=== PATIENT | male | born 1960 | race Caucasian/White ===

== ENCOUNTER → 2021-11-20 10:17 | Outpatient (CLI) | payer OTHER, SELFPAY ==
[2021-11-20 19:12] LABS: Add Manual Diff / Slide Review NO; Basophils Absolute Auto 100 /uL (0-100); Eosinophils Absolute Auto 300 /uL (0-450); Eosinophils Percent Auto 3.8 % (2-4); Hematocrit 42.5 % (41-53); Hemoglobin 14.6 g/dL (13.5-17.5); Lymphocytes Absolute Auto 2100 /uL (1100-4500); Lymphocytes Percent Auto 27.3 % (25-40); Mean Corpuscular HGB Conc 34.3 % (30-36); Mean Corpuscular Hemoglobin 30.3 PG (26-34); Mean Corpuscular Volume 88.4 fL (80-100); Monocytes Absolute Auto 600 /uL (0-900); Monocytes Percent Auto 7.6 % (3-14); Neutrophils Absolute Auto 4500 /uL (1500-7000); Neutrophils Percent Auto 60.3 % (50-75); Platelet Count 227 X10^3/uL (150-400); Red Blood Cell Count 4.81 X10^6/uL (4.5-5.9); Red Cell Distribution Width 14.5 % (11.6-14.8); White Blood Cell Count 7.5 X10^3/uL (4.5-11.0)
[2021-11-20 19:19] LABS: Alanine Aminotransferase 25 IU/L (<50); Albumin 4.2 g/dL (3.5-5.0); Albumin Globulin Ratio 1.4 (1.0-2.8); Alkaline Phosphatase 65 U/L (38-126); Aspartate Aminotransferase 27 IU/L (17-59); BUN Creatinine Ratio 23.2 (6-22); Bilirubin Total 0.8 mg/dL (0.2-1.3); Blood Urea Nitrogen 23 mg/dL (9-20); Calcium 9.6 mg/dL (8.4-10.2); Carbon Dioxide 26 mmol/L (22-32); Chloride 100 mmol/L (98-107); Cholesterol 259 mg/dL (140-199); Estimated Glomerular Filt Rate > 60 mL/min (>60); Glucose 107 mg/dL (80-110); HDL Cholesterol 60 mg/dL (40-60); HEMOLYSIS < 15 (0-50); LDL Cholesterol Calculated 174 mg/dL (<100); Potassium 4.4 mmol/L (3.4-5.1); Sodium 135 mmol/L (137-145); Total Protein 7.2 g/dL (6.3-8.2); Triglycerides 126 mg/dL (35-150)
[2021-11-20 19:49] LABS: Prostate Specific Antigen Scrn 0.529 ng/mL (0.1-4.0)
== END ==
PROVIDERS: PCP Family Medicine; Visit Provider Physician Assistant
DX: I10 Essential (primary) hypertension (principal); M10.9 Gout, unspecified; Z12.5 Encounter for screening for malignant neoplasm of prostate; Z13.6 Encounter for screening for cardiovascular disorders; Z79.899 Other long term (current) drug therapy
CPT/HCPCS: 80053; 80061; 85025; G0103

== ENCOUNTER → 2024-01-05 10:05 | Outpatient (CLI) | payer OTHER, SELFPAY ==
[2024-01-05 19:10] LABS: Add Manual Diff / Slide Review NO; Basophils Absolute Auto 0 /uL (0-100); Basophils Percent Auto 0.7 % (0-2); Eosinophils Absolute Auto 400 /uL (0-450); Eosinophils Percent Auto 5.4 % (2-4); Hematocrit 44.3 % (41-53); Lymphocytes Absolute Auto 2000 /uL (1100-4500); Mean Corpuscular HGB Conc 33.8 % (30-36); Mean Corpuscular Hemoglobin 29.2 PG (26-34); Mean Corpuscular Volume 86.4 fL (80-100); Monocytes Absolute Auto 500 /uL (0-900); Monocytes Percent Auto 7.1 % (3-14); Neutrophils Absolute Auto 3700 /uL (1500-7000); Neutrophils Percent Auto 55.8 % (50-75); Platelet Count 293 X10^3/uL (150-400); Red Blood Cell Count 5.12 X10^6/uL (4.5-5.9); Red Cell Distribution Width 13.3 % (11.6-14.8); White Blood Cell Count 6.6 X10^3/uL (4.5-11.0)
[2024-01-05 19:18] LABS: Alanine Aminotransferase 21 IU/L (<50); Albumin 4.1 g/dL (3.5-5.0); Albumin Globulin Ratio 1.5 (1.0-2.8); Alkaline Phosphatase 60 U/L (38-126); Aspartate Aminotransferase 24 IU/L (17-59); BUN Creatinine Ratio 23.5 (6-22); Bilirubin Total 0.9 mg/dL (0.2-1.3); Blood Urea Nitrogen 23 mg/dL (9-20); Calcium 9.6 mg/dL (8.4-10.2); Carbon Dioxide 30 mmol/L (22-32); Chloride 101 mmol/L (98-107); Cholesterol 250 mg/dL (140-199); Estimated Glomerular Filt Rate > 60 mL/min (>60); Globulin 2.8 g/dL (1.7-4.1); Glucose 115 mg/dL (80-110); HDL Cholesterol 53 mg/dL (40-60); HEMOLYSIS < 15 (0-50); LDL Cholesterol Calculated 170 mg/dL (<100); Potassium 4.6 mmol/L (3.4-5.1); Sodium 136 mmol/L (137-145); Total Protein 6.9 g/dL (6.3-8.2); Triglycerides 137 mg/dL (35-150)
[2024-01-05 19:48] LABS: Prostate Specific Antigen Scrn 0.482 ng/mL (0.1-4.0); TSH w/ Reflex to FT4 1.65 uIU/mL (0.47-4.68)
== END ==
PROVIDERS: PCP Physician Assistant; Visit Provider Physician Assistant
DX: E78.00 Pure hypercholesterolemia, unspecified (principal); I10 Essential (primary) hypertension; M10.9 Gout, unspecified; Z13.6 Encounter for screening for cardiovascular disorders; Z12.5 Encounter for screening for malignant neoplasm of prostate; E66.9 Obesity, unspecified
CPT/HCPCS: 80053; 80061; 84443; 85025; G0103

== ENCOUNTER → 2024-01-13 12:00 | Outpatient (CLI) | payer OTHER, SELFPAY | PROVIDERS: PCP Physician Assistant; Visit Provider Physician Assistant | DX: R19.7 Diarrhea, unspecified (principal) | CPT/HCPCS: 87177 ==

== ENCOUNTER → 2024-03-08 09:01 | Outpatient (CLI) | payer OTHER, SELFPAY ==
[2024-03-08 19:27] LABS: Add Manual Diff / Slide Review NO; Basophils Absolute Auto 100 /uL (0-100); Basophils Percent Auto 0.8 % (0-2); Eosinophils Absolute Auto 300 /uL (0-450); Eosinophils Percent Auto 4.2 % (2-4); Hematocrit 46.4 % (41-53); Hemoglobin 15.3 g/dL (13.5-17.5); Lymphocytes Absolute Auto 1700 /uL (1100-4500); Lymphocytes Percent Auto 23.6 % (25-40); Mean Corpuscular Hemoglobin 28.6 PG (26-34); Mean Corpuscular Volume 86.6 fL (80-100); Monocytes Absolute Auto 600 /uL (0-900); Monocytes Percent Auto 7.7 % (3-14); Neutrophils Absolute Auto 4600 /uL (1500-7000); Neutrophils Percent Auto 63.7 % (50-75); Platelet Count 248 X10^3/uL (150-400); Red Blood Cell Count 5.35 X10^6/uL (4.5-5.9); Red Cell Distribution Width 15.9 % (11.6-14.8); White Blood Cell Count 7.3 X10^3/uL (4.5-11.0)
[2024-03-08 19:37] LABS: Alanine Aminotransferase 25 IU/L (<50); Albumin 4.3 g/dL (3.5-5.0); Albumin Globulin Ratio 1.6 (1.0-2.8); Alkaline Phosphatase 57 U/L (38-126); Aspartate Aminotransferase 30 IU/L (17-59); BUN Creatinine Ratio 23.7 (6-22); Bilirubin Total 0.8 mg/dL (0.2-1.3); Blood Urea Nitrogen 22 mg/dL (9-20); C-Reactive Protein Quant 0.8 mg/dL (<1.0); Calcium 9.5 mg/dL (8.4-10.2); Carbon Dioxide 26 mmol/L (22-32); Chloride 103 mmol/L (98-107); Cholesterol 238 mg/dL (140-199); Estimated Glomerular Filt Rate > 60 mL/min (>60); Globulin 2.7 g/dL (1.7-4.1); Glucose 124 mg/dL (80-110); HDL Cholesterol 71 mg/dL (40-60); HEMOLYSIS 29 (0-50); LDL Cholesterol Calculated 142 mg/dL (<100); Potassium 4.4 mmol/L (3.4-5.1); Sodium 135 mmol/L (137-145); Triglycerides 125 mg/dL (35-150); Uric Acid 6.5 mg/dL (3.5-8.5)
[2024-03-08 19:41] LABS: Rheumatoid Factor < 8.6 IU/mL (<12.0)
[2024-03-08 20:06] LABS: Erythrocyte Sedimentation Rate 3 MM/HR (0-15)
== END ==
PROVIDERS: PCP Physician Assistant; Visit Provider Family Medicine
DX: I10 Essential (primary) hypertension (principal); M10.9 Gout, unspecified; E78.00 Pure hypercholesterolemia, unspecified
CPT/HCPCS: 80053; 80061; 84550; 85025; 85651; 86038; 86140; 86200; 86430

== ENCOUNTER → 2024-04-20 13:36 | Outpatient (CLI) | payer OTHER, SELFPAY ==
--- NOTE | 2024-04-20 13:38 | DI.ECHO.S_ITS ---
[facility] : : [address] : : [place] : : [id number] : : Phone: [phone] Echocardiogram Report + + :Name: GEMA SCHULZ Study Date: 04/20/2024 Height: 69 in : :[facility] ReadingLocation: Weight: 250 lb : : Gender: Male BSA: 2.3 m2 : :: 1960 Age: 63 yrs BP: 168/98 mmHg: :Reason For Study: PRECORDIAL CHEST PAIN : :Ordering Physician: MICHELLE, : :ROBYN Performed By: Marine Brown : :Referring: ROBYN MARTINEZ : + + Interpretation Summary 1. Left ventricular contractility is borderline. Estimate ejection fraction is 50 to 55% with no segmental wall motion abnormalities. Borderline concentric LVH. Grade 1 diastolic dysfunction. 2. The right ventricular contractility is normal. 3. Mild right ventricular enlargement. All other cardiac chambers are of normal size. 4. No significant valvular abnormalities. 5. No obvious intracardiac shunts. 6. No obvious intracardiac masses nor thrombi. 7. No hemodynamically significant pericardial effusion. 8. Low right-sided filling pressures. 9. Mildly dilated aortic root and ascending thoracic aorta without obvious dissection. Conclusion: Low normal left ventricular systolic function with no significant valvular abnormalities. Procedure: A two-dimensional transthoracic echocardiogram with color flow and Doppler was performed. The study quality was technically adequate. There is no prior echocardiogram noted for this patient. The patient was in sinus rhythm with heart rates between 61-72 bpm during the exam. Left Ventricle: The left ventricle is normal in size. Left ventricular wall thickness is mildly increased. The ejection fraction is estimated to be 50- 55%. Right Ventricle: The right ventricle is mildly dilated. The right ventricular systolic function is normal. Atria: The left atrial size is normal. Right atrial size is normal. There is no Doppler evidence for an interatrial shunt. Mitral Valve: The mitral valve leaflets appear to open well. There is no mitral regurgitation noted. Aortic Valve: The aortic valve is trileaflet. The aortic valve opens well. There is no aortic valve stenosis. There is trace aortic regurgitation. Tricuspid Valve: The tricuspid valve leaflets are thin and pliable. There is trace tricuspid regurgitation. The right ventricular systolic pressure is estimated to be at least 24 mmHg based on an estimated right atrial pressure of 3 mm Hg. Pulmonic Valve: The pulmonic valve leaflets are thin and pliable; valve motion is normal. There is trace pulmonic regurgitation. Great Vessels: The aortic root is mildly dilated. The ascending aorta is mildly enlarged. The IVC is of normal diameter and collapses greater than 50% with a sniff. This suggests a low right atrial pressure of 3 mm Hg. Pericardium/ Pleura There is no pericardial effusion. There is no pleural effusion. MMode/2D Measurements & Calculations LVIDd: 4.6 cm LVOT diam: 2.4 cm LVIDs: 3.0 cm Ao root diam: 4.6 cm FS: 35.4 % asc Aorta Diam: 4.4 cm IVSd: 1.0 cm Ao Arch Diam (Prox Trans): 3.6 cm LVPWd: 1.2 cm LV valero. diameter/BSA (cm/m^2): 2.0 LV sys. diameter/BSA (cm/m^2): 1.3 LA A2 area: 28.4 cm2 RA long axis: 5.6 cm LA A4 area: 20.4 cm2 RA area: 20.2 cm2 LA length (vol): 5.4 cm RA vol: 62.1 ml LA vol: 90.8 ml RA : 27.3 ml/m2 LA vol index: 40.0 ml/m2 IVC diam: 2.3 cm RVD1 (basal): 4.1 cm RVD2 (mid): 3.4 cm TAPSE: 2.0 cm Doppler Measurements & Calculations Ao V2 max: 153.9 cm/sec LVOT Max Panfilo: 90.0 cm/sec Ao V2 mean: 104.8 cm/sec LV V1 max P.2 mmHg Ao max P.5 mmHg LV V1 VTI: 21.2 cm Ao mean P.9 mmHg OTIS(I,D): 3.1 cm2 Ao V2 VTI: 31.4 cm OTIS(V,D): 2.7 cm2 sev ratio: 0.67 OTIS indexed to BSA (cm^2/m^2): 1.4 MV E max panfilo: 62.8 cm/sec TR max panfilo: 233.1 cm/sec MV A max panfilo: 76.8 cm/sec TR max P.7 mmHg MV E/A: 0.82 PA V2 max: 97.5 cm/sec Med Peak E' Panfilo: 5.6 cm/sec PA V2 mean: 68.6 cm/sec E/E' med: 11.3 PA mean P.0 mmHg Lat Peak E' Panfilo: 9.4 cm/sec PA pr(Accel): 39.2 mmHg E/E' lat: 6.6 E/e' average: 8.9 MV dec time: 0.28 sec SV(OT): 97.4 ml Reading Physician:JAROD
== END ==
PROVIDERS: PCP Physician Assistant; Referring Provider Internal Medicine Cardiovascular Disease; Visit Provider Internal Medicine Cardiovascular Disease
DX: R07.2 Precordial pain (principal); I77.810 Thoracic aortic ectasia; I77.89 Other specified disorders of arteries and arterioles
CPT/HCPCS: 93306

== ENCOUNTER 2024-08-16 06:32 | Day surgery (SDC) | payer OTHER, SELFPAY ==
[2024-08-10 11:56] VITALS: BMI 36.3
--- NOTE | 2024-08-16 | PATH_ITS ---
[facility] Accession Number: [id number] No. of containers..01 Tissue . 01 Material submitted: . OMENTUM - OMENTUM . 01 Diagnosis: OMENTUM, PARTIAL OMENTECTOMY: Histologically unremarkable fibroadipose tissue. Negative for malignancy. MRV 08/22/2024 1445 Local . 01 Electronically signed: . Shanice French DO, Pathologist NPI- [id number] . 01 Gross description: . Received in formalin with two identifiers and omentum, is an irregular fragment of yellow, lobulated soft tissue, 9.4 x 5.0 x 1.5 cm. A pale wong, smooth, rubbery nodule is identified measuring 1.4 x 1.3 x 1.2 cm. Sectioning the specimen reveals the rubber fragment to have a yellow, soft cut surface. The remaining cut surface is lobulated and unremarkable with no lesions identified. Joint Cutter sections are submitted in A1-A2. ([id number]) /MRV 08/17/2024 1332 Local . 01 Pathologist provided ICD-10: K42.9 . 01 CPT . 761219 Specimen Comment: A courtesy copy of this report has been sent to [phone] Performed at: [address] [facility], [place], [place] [id number] MD Wally Palm MD Phone: [phone]
[2024-08-16 07:09] VITALS: BMI 36.3
[2024-08-16] MEDS: ACETAMINOPHEN 325 MG TABLET 975 MG PO (07:25)
[2024-08-16] MEDS: LACTATED RINGERS 1,000 ML 42 ML IV (07:27)
[2024-08-16 07:28] VITALS: BP 169/101; PULSE 69; RESP 16; TEMP 36.7; O2SAT 97
--- NOTE | 2024-08-16 07:38 | PM.PREOP ---
Pre-operative Note COVID-19 COVID-19 status: Not tested Interval Note History & Physical reviewed/Exam performed by Physician: Yes Changes to H&P: No ASA Class (for procedural sedation): II
[2024-08-16] MEDS: CEFAZOLIN 2 GM/100 ML PREMIX 100 ML IV (07:50)
--- NOTE | 2024-08-16 08:06 | SUR.OPER ---
Supine on padded OR bed, head on pillow, arms secured on padded arm boards at <90 degrees abduction, legs uncrossed, safety belt at thigh, tape over blanket over lower legs. Dr. Fisher and PA in room at time of positioning. All pressure points padded and position approved.
[2024-08-16] MEDS: BUPIVACAINE 0.5% W/ EPI (PF) 30 ML VIAL INJ (08:09)
--- NOTE | 2024-08-16 09:17 | PM.OP.1 ---
Operative Date/Time/Diagnoses Date of procedure: 08/16/24 Time of procedure: 09:17 Pre-op diagnosis: Umbilical hernia Post-op diagnosis: same Procedure & Clinicians Procedure: Open umbilical hernia repair with mesh Same procedure(s) as scheduled: Yes Surgeon: Jakub Fisher Lead Software Engineer: Abelardo Mckeon Anesthesia Type: General Operative Notes Findings: 2 cm fascial defect containing incarcerated omentum Applied: none Estimated Blood Loss (mL): 20 Procedure in detail: Ancef was administered. The patient was brought to the operating room, placed on the table in the supine position and general endotracheal anesthesia was induced. The abdomen was prepped and draped in the usual fashion. A time-out was performed. A 6 cm curvilinear incision was made inferior to the umbilicus and at least 1 cm inferior to the patch of psoriatic skin of the umbilicus. The hernia sac was dissected free from the surrounding subcutaneous adipose tissue. The sac was dissected off the umbilical skin using a combination of cautery, sharp and blunt dissection. Sac was opened and a segment of omentum was resected using the cautery. This resection did induce some persistent bleeding and so a few interrupted [id number] 3-0 Vicryl stitches were used for hemostasis. The fascial defect was roughly 3 cm across. The fascia was then closed transversely with multiple interrupted 0 Ethibond sutures. The subcutaneous adipose tissue was cleared off of the anterior sheath circumferentially about 2 cm in each direction. A piece of polypropylene mesh was trimmed to fit over the fascial closure and secured with Tisseel. Once the Tisseel was dried the umbilical skin was tacked down to the deep subcutaneous adipose tissue with a single 3-0 Vicryl stitch. The skin was closed with multiple interrupted 3-0 Vicryl dermal sutures followed by a running 4 Monocryl subcuticular closure. Steri-Strips were applied and an abdominal binder was applied. EBL: 20 mL Abelardo BEAN provided assistance with exposure, retraction and closure of incisions. Complications: none Post-operative Condition: stable Disposition: PACU
[2024-08-16 09:23] VITALS: BP 171/88; PULSE 72; RESP 13; TEMP 36.3; O2SAT 95
[2024-08-16 09:29] VITALS: BP 174/88; PULSE 137; RESP 15; TEMP 36.3; O2SAT 95
[2024-08-16 09:34] VITALS: BP 159/92; PULSE 73; RESP 16; TEMP 36.3; O2SAT 95
[2024-08-16] MEDS: OXYCODONE IR 5 MG TABLET PO (09:40)
[2024-08-16] MEDS: ONDANSETRON 4 MG/2 ML INJ IV (09:40)
[2024-08-16 09:53] VITALS: BP 160/96; PULSE 73; RESP 15; TEMP 36.2; O2SAT 96
== END 2024-08-16 10:30 | disposition home or self-care (01) ==
PROVIDERS: PCP Family Medicine; Referring Provider Surgery; Visit Provider Surgery
PROC: (CPT 49592; principal; 2024-08-16 07:45)
DX: K42.9 Umbilical hernia without obstruction or gangrene (principal); Z87.891 Personal history of nicotine dependence; L40.9 Psoriasis, unspecified
CPT/HCPCS: 49592; C1781; C9250; J0330; J0690; J1100; J1885; J2405; J2704; J3010

== ENCOUNTER → 2024-12-11 07:40 | Outpatient (CLI) | payer OTHER, SELFPAY ==
--- NOTE | 2024-12-11 07:44 | DI.MRI.S_ITS ---
PROCEDURE: MR BRAIN (IAC) WWO CON INDICATIONS: SENSORINEURAL HEARING LOSS TECHNIQUE: Noncontrast sagittal T1 spin echo, axial FLAIR, axial gradient echo, axial diffusion and ADC through the brain. Axial thin-slice 3D CISS, coronal TruFISP, axial T1 spin echo with fat saturation through the internal auditory canals. After the administration of contrast, thin slice axial and coronal T1 spin echo with fat saturation through the internal auditory canals, and axial and coronal and sagittal T1 spin echo with fat saturation through the brain. COMPARISON: None. FINDINGS: Cerebellopontine angles: No cerebellopontine angle masses. Inner ear structures appear normally formed. No suspicious enhancement in the internal auditory canal or along the course of the 7th cranial nerve. CSF spaces: Ventricles are normal in size and shape. No extra-axial fluid collections. Basal cisterns are patent. Brain: No intracranial masses or hemorrhage. Nguyen/white matter interface is normal. Brainstem appears normal. Diffusion-weighted sequence is unremarkable without evidence of acute infarct. Normal intravascular flow voids are present. Minimal multifocal white matter chronic ischemic change Skull and face: Calvarial marrow signal is normal. Orbits appear normal. Sinuses: Sinuses and mastoids are clear. IMPRESSION: Mild white matter chronic ischemic change. No intracranial hemorrhage, infarct or mass lesion. No evidence of acoustic schwannoma Approved by: Morris Hunter M.D. on 12/11/2024 at 11:44
--- NOTE | 2024-12-14 07:41 | DI.NM.S_ITS ---
DATE OF SERVICE: 12/13/2024 PROCEDURE: Pharmacological perfusion study. INDICATIONS: Chest pain with underlying hypertension and hyperlipidemia. RADIOPHARMACEUTICAL: 27.3 mCi technetium-99m Myoview IV was injected at stress and 25.5 mCi technetium-99m Myoview IV was injected at rest. CARDIAC STRESS: The patient underwent IV Lexiscan perfusion study under the supervision of an attending staff using standard IV Lexiscan as per protocol. Baseline rhythm sinus with mild sinus bradycardia. Baseline blood pressure hypertensive with resting blood pressure 156/102. During Lexiscan infusion, patient remained hemodynamically stable. No ischemic EKG changes. No significant arrhythmias. No chest discomfort. Minimal dyspnea. RAW DATA: There is increased subdiaphragmatic activity. The patient's weight is 250 pounds. GATED STUDY: Resting LV ejection fraction 65% and stress LV ejection fraction 68% without any obvious wall motion abnormalities. Resting end- diastolic volume 156 mL. TID ratio 1.23, which is within normal limit for pharmacological perfusion stress test. Lung/heart ratio 0.27, which is within normal limit. MYOCARDIAL PERFUSION SCAN: Stress supine, resting supine, and stress prone images were compared to each other. Stress supine and resting supine images revealed [id number] size, mild to moderately decreased perfusion of inferior wall including inferoapex which got significantly improved during stress prone images suggestive of diaphragmatic tissue attenuation artifact. No convincing ischemia or infarction pattern seen. CONCLUSION: I will call this study likely a normal myocardial perfusion study with evidence of diaphragmatic tissue attenuation artifact which improved during stress prone images. No ischemic EKG changes. Preserved LV function. No wall motion abnormalities. Hypertensive to begin with. Overall, low-risk myocardial perfusion scan. David Alcazar - [employer]/fn/SD doc#: [id number]/job#: [id number] dd: 12/13/2024 16:48:00 dt: 12/13/2024 17:48:00 DICTATING MD/COPIES TO: Daniella Florez MD COPIES MNE: MANNY;
== END ==
PROVIDERS: PCP Family Medicine; Referring Provider Otolaryngology Otology & Neurotology; Visit Provider Family Medicine
DX: H90.3 Sensorineural hearing loss, bilateral (principal); R07.89 Other chest pain; I51.7 Cardiomegaly; I10 Essential (primary) hypertension; E78.2 Mixed hyperlipidemia; Z82.49 Family history of ischemic heart disease and other diseases of the circulatory system
CPT/HCPCS: 70553; 78452; 93017; A9502; A9579; J2785

== ENCOUNTER → 2024-12-25 09:15 | Outpatient (CLI) | payer OTHER, SELFPAY ==
[2024-12-25 19:03] LABS: Hemoglobin A1C% w Est Avg Glu 6.0 % (4.0-6.0)
[2024-12-25 19:04] LABS: Cholesterol 184 mg/dL (140-199); HDL Cholesterol 54 mg/dL (40-60); Triglycerides 167 mg/dL (35-150); Uric Acid 7.1 mg/dL (3.5-8.5)
== END ==
PROVIDERS: PCP Family Medicine; Visit Provider Family Medicine
DX: F10.20 Alcohol dependence, uncomplicated (principal); I10 Essential (primary) hypertension; I51.7 Cardiomegaly; E78.2 Mixed hyperlipidemia; G47.33 Obstructive sleep apnea (adult) (pediatric); Z12.5 Encounter for screening for malignant neoplasm of prostate
CPT/HCPCS: 80061; 83036; 84550; G0103

== ENCOUNTER → 2025-02-06 08:48 | Outpatient (CLI) | payer OTHER, SELFPAY | LOC: LAB 08:49 | PROVIDERS: PCP Family Medicine; Visit Provider Physician Assistant Medical | DX: L03.116 Cellulitis of left lower limb (principal); S81.012A Laceration without foreign body, left knee, initial encounter | CPT/HCPCS: 87070; 87075; 87077; 87147; 87205 ==